=== PATIENT | female | born 1960 | race Caucasian/White ===

== ENCOUNTER 2021-01-22 00:23 | Emergency (ER) | payer BC ==
[~2021-01-22 00:23] MED LIST: BUPR300T53 PO; FLUV50TA2 PO; GABA-533 PO; PANT20TA PO; TRAZ150T79 PO
[2021-01-22 00:28] VITALS: BP 138/75
[2021-01-22] MEDS ORDERED: DIPHENHYDRAMINE HCL 25 MG CAPSULE PO ONE (01:00)
[2021-01-22] MEDS ORDERED: FAMOTIDINE 20MG TAB PO ONE (01:00)
[2021-01-22] MEDS ORDERED: IBUPROFEN 800 MG TAB PO ONE (01:00)
[2021-01-22] MEDS ORDERED: IBUP-1493 PO (01:24)
[2021-01-22] MEDS ORDERED: LORA-868 PO (01:24)
== END 2021-01-22 01:52 | disposition home or self-care (01) ==
LOC: EDH 00:23
DX: J02.9 Acute pharyngitis, unspecified (principal); H92.03 Otalgia, bilateral; F32.9 Major depressive disorder, single episode, unspecified; Z79.899 Other long term (current) drug therapy
CPT/HCPCS: 87880; 99283; Q0163

== ENCOUNTER 2022-02-10 19:08 | Emergency (ER) | payer BC ==
[~2022-02-10] VITALS: Ht 167.6 cm; Wt 90.3 kg
[~2022-02-10 19:08] MED LIST changes: -FLUV50TA2 PO; +FLUV50TA24 PO; +IBUP-1493 PO; +LORA-868 PO
[2022-02-10 19:39] LABS: BASOPHILS % (AUTO) 0.4 % (0.0-5.0); EOSINOPHILS % (AUTO) 0.1 % (0.0-8.0); LYMPHOCYTES % (AUTO) 8.7 % (21.0-51.0); MEAN CORPUSCULAR HEMOGLOBIN 27.7 pg (27.0-33.0); MEAN CORPUSCULAR HGB CONC 34.2 g/dL (32.0-36.0); MEAN CORPUSCULAR VOLUME 80.9 fL (79-99); MONOCYTES % (AUTO) 4.9 % (3.0-13.0); NEUTROPHILS % (AUTO) 85.5 % (40.0-77.0); PLATELET COUNT (AUTO) 300 K/uL (130-400); RED CELL DISTRIBUTION WIDTH 13.6 % (11.0-15.5); WHITE BLOOD COUNT (AUTO) 18.3 K/uL (4.8-10.8)
[2022-02-10] MEDS ORDERED: ONDANSETRON 4MG INJ ONE (19:43)
[2022-02-10 19:55] LABS: CREATININE 1.4 mg/dL (0.5-1.5); POTASSIUM 3.6 mmol/L (3.5-5.1)
[2022-02-10] MEDS ORDERED: 0.9%NACL 1000ML 1,000 ML IV ONE (20:00)
[2022-02-10] MEDS ORDERED: ONDANSETRON 4MG INJ IVP ONE (20:00)
[2022-02-10 20:04] LABS: ALBUMIN 4.1 g/dL (3.5-5.0); TOTAL PROTEIN, SERUM 7.6 g/dL (6.0-8.3)
[2022-02-10] MEDS ORDERED: ACETAMINOPHEN 325 MG TAB ONE (20:21)
[2022-02-10] MEDS ORDERED: ONDA4TAB10 PO (21:37)
[2022-02-10 21:44] VITALS: BP 119/61
== END 2022-02-10 21:54 | disposition home or self-care (01) ==
LOC: EDH 19:08
DX: K52.9 Noninfective gastroenteritis and colitis, unspecified (principal); E86.9 Volume depletion, unspecified; K21.9 Gastro-esophageal reflux disease without esophagitis; Z79.1 Long term (current) use of non-steroidal anti-inflammatories (NSAID); Z79.899 Other long term (current) drug therapy
CPT/HCPCS: 99284; 74176; 96374; 71045; 96361; 82270; 84484; 80053; 85025; 87040 ×2; 87046; 83605; 87324; 36415; 93005; J7030; J2405

== ENCOUNTER 2022-04-06 18:56 | Inpatient (IN) | payer BC ==
[~2022-04-06] VITALS: Ht 172.7 cm; Wt 86.4 kg
[2022-04-06] MEDS: 0.9%NACL 1000ML 1,000 ML IV SCH
[~2022-04-06 18:56] MED LIST changes: +ONDA4TAB10 PO
[2022-04-06] MEDS ORDERED: AZITHROMYCIN 250 MG TABLET PO ONE (19:30)
[2022-04-06] MEDS ORDERED: GUAIFENESIN-CODEINE 5 ML SYRUP PO ONE (19:30)
[2022-04-06] MEDS ORDERED: IPRATROPIUM/ALBUTEROL SULFATE 3 ML SOLUTION IH ONE (19:30)
[2022-04-06] MEDS ORDERED: ALBUTEROL 0.083% 2.5 MG/3 ML INH IH ONE (19:30)
[2022-04-06] MEDS ORDERED: AMOX/CLAV 875/125MG TAB PO ONE (19:30)
[2022-04-06] MEDS ORDERED: SOLU-MEDROL 125MG VIAL IVP ONE (19:30)
[2022-04-06 19:36] LABS: BASOPHILS % (AUTO) 0.3 % (0.0-5.0); EOSINOPHILS % (AUTO) 0.8 % (0.0-8.0); LYMPHOCYTES % (AUTO) 25.2 % (21.0-51.0); MEAN CORPUSCULAR HEMOGLOBIN 27.5 pg (27.0-33.0); MEAN CORPUSCULAR HGB CONC 33.7 g/dL (32.0-36.0); MEAN CORPUSCULAR VOLUME 81.6 fL (79-99); MONOCYTES % (AUTO) 4.8 % (3.0-13.0); NEUTROPHILS % (AUTO) 68.4 % (40.0-77.0); PLATELET COUNT (AUTO) 254 K/uL (130-400); RED BLOOD CELL COUNT(AUTO) 4.29 MIL/uL (4.00-5.50); RED CELL DISTRIBUTION WIDTH 14.2 % (11.0-15.5); WHITE BLOOD COUNT (AUTO) 13.3 K/uL (4.8-10.8)
[2022-04-06 19:53] LABS: POTASSIUM 3.9 mmol/L (3.5-5.1)
[2022-04-06 19:58] LABS: ALBUMIN 3.9 g/dL (3.5-5.0); TOTAL PROTEIN, SERUM 7.7 g/dL (6.0-8.3)
[2022-04-06] MEDS: BUDESONIDE 0.5 MG/2 ML INH IH SCH (20:06)
[2022-04-06] MEDS ORDERED: D-ME1POW16 PO (20:28)
[2022-04-06] MEDS ORDERED: AMOX1TAB16 PO (20:28)
[2022-04-06] MEDS ORDERED: PRED20TA3 PO (20:28)
[2022-04-06] MEDS ORDERED: ALBU90AE2 IH (20:28)
[2022-04-06 22:14] LABS: ABG BASE EXCESS -1.2 mmol/L (-2.0-3.0); ABG HCO3 21.8 mmol/L (21.0-28.0); ABG OXYGEN SATURATION 91.9 % (95.0-99.0); ABG PCO2 32 mmHg (32-45)
[2022-04-06] MEDS ORDERED: ONDANSETRON 4MG INJ IV PRN (22:30)
[2022-04-06] MEDS ORDERED: MORPHINE 4 MG SYG IV PRN (22:30)
[2022-04-06] MEDS ORDERED: ACETAMINOPHEN 325 MG TAB PO PRN (22:30)
[2022-04-06] MEDS ORDERED: MORPHINE 2 MG SYG IV PRN (22:30)
[2022-04-07] MEDS ORDERED: GUAIFENESIN-CODEINE 5 ML SYRUP PO PRN
[2022-04-07] MEDS: CEFTRIAXONE 1G VIAL IVP SCH
[2022-04-07] MEDS: IPRATROPIUM/ALBUTEROL SULFATE 3 ML SOLUTION IH SCH ×5 (00:58→23:44)
[2022-04-07] MEDS: TRAZODONE HCL 100 MG TABLET PO PRN ×2 (02:51→20:59)
[2022-04-07 04:20] VITALS: BP 118/68
[2022-04-07] MEDS ORDERED: FLUV50TA24 PO (05:08)
[2022-04-07] MEDS ORDERED: TRAZ-187 PO (05:08)
[2022-04-07] MEDS ORDERED: BUPR-93 PO (05:08)
[2022-04-07 05:57] LABS: BASOPHILS % (AUTO) 0.1 % (0.0-5.0); HEMATOCRIT 33.6 % (36-48); LYMPHOCYTES % (AUTO) 13.2 % (21.0-51.0); MEAN CORPUSCULAR HEMOGLOBIN 27.6 pg (27.0-33.0); MEAN CORPUSCULAR HGB CONC 33.6 g/dL (32.0-36.0); MONOCYTES % (AUTO) 0.6 % (3.0-13.0); NEUTROPHILS % (AUTO) 85.6 % (40.0-77.0); PLATELET COUNT (AUTO) 261 K/uL (130-400); RED CELL DISTRIBUTION WIDTH 14.4 % (11.0-15.5); WHITE BLOOD COUNT (AUTO) 9.6 K/uL (4.8-10.8)
[2022-04-07 06:08] LABS: MAGNESIUM 1.9 mg/dL (1.80-2.40); PHOSPHORUS 2.7 mg/dL (2.5-4.9); POTASSIUM 3.7 mmol/L (3.5-5.1)
[2022-04-07 08:00] VITALS: BP 130/71
[2022-04-07] MEDS: FAMOTIDINE 20MG VIAL IV SCH ×2 (08:18→20:59)
[2022-04-07] MEDS: ENOXAPARIN SODIUM 40 MG/0.4 ML SYRINGE SQ SCH (08:18)
[2022-04-07] MEDS ORDERED: 0.9% NACL 250ML 250 ML ONE (11:26)
[2022-04-07] MEDS: DOXYCYCLINE 100MG+NS 250ML IV SCH ×2 (11:29)
[2022-04-07 12:06] VITALS: BP 116/58
[2022-04-07 16:00] VITALS: BP 133/79
[2022-04-07 20:21] VITALS: BP 130/76
[2022-04-07] MEDS: 0.9%NACL 1000ML 1,000 ML IV SCH (21:00)
[2022-04-08] VITALS: BP 127/73
[2022-04-08] MEDS: DOXYCYCLINE 100MG+NS 250ML IV SCH ×2 (00:23→11:45)
[2022-04-08] MEDS: CEFTRIAXONE 1G VIAL IVP SCH (00:23)
[2022-04-08 04:16] VITALS: BP 135/70
[2022-04-08] MEDS: IPRATROPIUM/ALBUTEROL SULFATE 3 ML SOLUTION IH SCH ×2 (06:45→11:11)
[2022-04-08] MEDS: BUDESONIDE 0.5 MG/2 ML INH IH SCH (06:48)
[2022-04-08 07:15] VITALS: BP 118/57
[2022-04-08] MEDS: FAMOTIDINE 20MG VIAL IV SCH (09:00)
[2022-04-08] MEDS: ENOXAPARIN SODIUM 40 MG/0.4 ML SYRINGE SQ SCH (09:07)
[2022-04-08 11:10] VITALS: BP 131/73
[2022-04-08] MEDS ORDERED: 0.9% NACL 250ML 250 ML ONE (11:44)
[2022-04-08] MEDS ORDERED: DOXY100C5 PO (12:33)
[2022-04-08] MEDS ORDERED: KETOROLAC 30MG VIAL (30MG/ML) ONE (14:16)
[2022-04-08] MEDS ORDERED: GABAPENTIN 100 MG CAPSULE PO SCH (21:00)
[2022-04-08] MEDS ORDERED: GABAPENTIN 300 MG CAPSULE PO SCH (21:00)
== END 2022-04-08 16:20 | disposition home or self-care (01) | DRG 193 ==
LOC: EDH 18:56 → EDHIP 22:20 → 4AH 04-07 04:30
PROVIDERS: ADMIT Internal Medicine; ATTEND Internal Medicine
DX: J18.9 Pneumonia, unspecified organism (principal); J96.01 Acute respiratory failure with hypoxia; J40 Bronchitis, not specified as acute or chronic; Z79.899 Other long term (current) drug therapy; K21.9 Gastro-esophageal reflux disease without esophagitis
CPT/HCPCS: 36415; 36600; 71045; 80048; 80053; 82435; 82803; 82947; 83605; 83735; 84100; 84132; 84295; 84484; 85018; 85025; 87071; 87205; 87635; 87804; 94640; 94664; C9803; G0378; J0696; J1650; J1885; J2930; J3490; J7030; J7050

== ENCOUNTER 2023-05-30 19:37 | Emergency (ER) | payer BC ==
[~2023-05-30] VITALS: Ht 165.1 cm; Wt 93.4 kg
[~2023-05-30 19:37] MED LIST changes: +BUPR-93 PO; -BUPR300T53 PO; +DOXY100C5 PO; -GABA-533 PO; +GABA-534 PO; -IBUP-1493 PO; -LORA-868 PO; -ONDA4TAB10 PO; -PANT20TA PO; +TRAZ-187 PO; -TRAZ150T79 PO
[2023-05-30 22:36] VITALS: BP 132/73; PULSE 76; RESP 16; O2SAT 100
== END 2023-05-30 22:35 | disposition home or self-care (01) ==
LOC: EDH 19:37
DX: S63.253A Unspecified dislocation of left middle finger, initial encounter (principal); F32.A Depression, unspecified; K21.9 Gastro-esophageal reflux disease without esophagitis; E66.9 Obesity, unspecified; X58.XXXA Exposure to other specified factors, initial encounter; Y93.89 Activity, other specified; Y92.89 Other specified places as the place of occurrence of the external cause; Y99.8 Other external cause status
CPT/HCPCS: 73130

== ENCOUNTER 2024-09-29 17:30 | Emergency (ER) | payer BC ==
[~2024-09-29] VITALS: Ht 165.1 cm; Wt 89.8 kg
[~2024-09-29 17:30] MED LIST changes: +FLUV50TA PO; -FLUV50TA24 PO
[2024-09-29 18:02] LABS: ADD UA MICROSCOPIC YES; APPEARANCE,URINE CLEAR (CLEAR); BILIRUBIN,URINE NEGATIVE (NEGATIVE); COLOR,URINE YELLOW (YELLOW); GLUCOSE, URINE (UA) NEGATIVE (NEGATIVE); KETONES,URINE NEGATIVE (NEGATIVE); LEUKOCYTE ESTERASE ,URINE NEGATIVE Leu/uL (NEGATIVE); NITRATE,URINE NEGATIVE (NEGATIVE); OCCULT BLOOD,URINE SMALL (NEGATIVE); PH,URINE 5.5 (5.0-8.0); PROTEIN,URINE NEGATIVE (NEGATIVE); UROBILINOGEN,URINE 0.2 mg/dL (0.2-1.0)
[2024-09-29 18:07] LABS: BACTERIA,URINE RARE /HPF (None Seen); MUCUS,URINE RARE LPF (None Seen); SQUAMOUS EPITHELIAL CELL,UR FEW /HPF (0-2); WBC,URINE 0-1 /HPF (0-1)
--- NOTE | 2024-09-29 18:07 | ERN ---
ED Note History of Present Illness Stated Complaint: ABDOMINAL PAIN Chief Complaint: Abdominal Pain Time Seen by MD: 17:33 Time Seen by Midlevel: 17:33 Dictation: The patient is a 64-year-old female with a history of C diff diverticulosis, D and C in August who presents to the emergency department with complaints of left lower abdominal pain associated with nonbloody diarrhea and nausea onset 10 days ago. Patient reports he has been seeing her PCP who treated her with Cipro and Flagyl but patient reports that she is unable to take medications due to severe pain. Denies any fevers. Reports she visit Dr. Chavez prescription eyeglass maker and told her that if pain worsens to come to ER. Allergies: Coded Allergies: No Known Drug Allergies (Unverified Allergy, Unknown, 01/01/21) Home Meds Active Scripts Doxycycline Hyclate (Doxycycline Hyclate) 100 Mg Capsule, 100 MG PO BID for 5 Days, #10 CAP Prov:MAURICIO TRIPATHI Jr., MD 04/08/22 Reported Medications Trazodone HCl (Trazodone HCl) 100 Mg Tablet, 100 MG PO HS, TAB 04/07/22 Fluvoxamine Maleate (Fluvoxamine Maleate) 50 Mg Tablet, 50 MG PO AM, TAB 04/07/22 Bupropion HCl (Wellbutrin Xl) 150 Mg Tab.er.24h, 150 MG PO AM, TAB 04/07/22 Gabapentin (Gabapentin) 400 Mg Capsule, 400 MG PO PM, CAP 01/02/21 Past Medical History Past Medical History: Depression, Diverticulosis, GERD Additional Past Medical Hx: Obesity Surgical History: Other Surgical History Other: D&C Family History: Negative Social History: Negative, Other History: Not Applicable RN Note Reviewed/Agreed w/PFSH: Yes Review of System Dictation Constitutional: Negative for fever,chills, and weight loss Eyes: Negative for injury, pain,redness, and discharge ENT: Negative for injury,pain or swelling Cardiovascular: Negative for chest pain, palpitations, and edema Respiratory: Negative for shortness of breath, cough, and wheezing, Abdomen/GI: Negative for, vomiting, and constipation positive for abdominal pain, . nausea Back: Negative for injury and pain : Negative for injury, bleeding and discharge MS/Extremity: Negative for injury and deformity Skin: Negative for rash, and discoloration Neuro: Negative for headache, weakness, numbness, tingling, and seizure Psych: Negative for suicide ideation, homicidal ideation, and hallucinations Initial Vital Sign VS Vital Signs Date Time Temp Pulse Resp B/P (MAP) Pulse Ox O2 Delivery O2 Flow Rate FiO2 09/29/24 17:33 97.9 83 20 129/81 99 Room Air 09/29/24 18:33 0 21 Physical Exam Dictation Vital Signs reviewed General Appearance: Alert, oriented x 3, no acute distress, well developed, nourished. Head and Face: non-traumatic. Eyes: PERRL, pink conjunctivas, eyelid no trauma, anterior chamber with arcus senilis. Ears: Pinnas intact and no signs of trauma or erythema ear canals clear and no discharge TM no erythema Nose: No discharge, no bleeding. Oropharynx: Mouth normal, tongue pink. pharynx clear,no erythema, tonsils no exudates, no abscesses noted, mucous membrane moist Neck: Supple, non-tender, no thyromegaly, no masses, no JVD, no bruits Breast:Deferred Chest:No tenderness, no crepitus, no paradoxical movement, no retractions Lungs:Clear, well-ventilated, symmetric, no rales, no wheezing, no rhonchi, no stridor, good breath sounds bilaterally Heart: Regular rate, regular rhythm, no murmur, no gallops Vascular: no peripheral edema, Abdomen: Soft, positive bowel sounds, nondistended, no guarding, Left lower quadrant tenderness,, no rebound, no masses no hepatomegaly, no splenomegaly, no Travis's sign, no hernias. Rectal: Deferred Genital: Deferred Neurological: Normal speech, motor function intact, sensory function intact Musculoskeletal: Neck nontender, full range of motion, back nontender, full range of motion, Extremities: nontender, full range of motion Skin: Color pink, dry, no turgor, no rash, no lacerations, no abrasions, no contusions. Lymphatic: Deferred Results (Laboratory/Radiology) Laboratory/Radiology Laboratory Tests Test 09/29/24 17:50 09/29/24 18:26 Urine Color YELLOW (YELLOW) Urine Appearance CLEAR (CLEAR) Urine pH 5.5 (5.0-8.0) Urine Specific [place] 1.023 (1.001-1.031) Urine Protein NEGATIVE mg/dL (NEGATIVE) Urine Glucose (UA) NEGATIVE mg/dL (NEGATIVE) Urine Ketones NEGATIVE mg/dL (NEGATIVE) Urine Occult Blood SMALL (NEGATIVE) H Urine Nitrate NEGATIVE (NEGATIVE) Urine Bilirubin NEGATIVE mg/dL (NEGATIVE) Urine Urobilinogen 0.2 mg/dL (0.2-1.0) Urine Leukocyte Esterase NEGATIVE Marcus/uL Urine RBC 6-10 /HPF (0-1) H Urine WBC 0-1 /HPF (0-1) Urine Squamous Epithelial Cells FEW /HPF (0-2) Urine Bacteria RARE /HPF (None Seen) White Blood Count 10.3 K/uL (4.8-10.8) Red Blood Count 4.06 MIL/uL (4.00-5.50) Hemoglobin 11.6 g/dL (12.0-16.0) L Hematocrit 34.3 % (36-48) L Mean Corpuscular Volume 84.5 fL (79-99) Mean Corpuscular Hemoglobin 28.6 pg (27.0-33.0) Mean Corpuscular Hemoglobin Concent 33.8 g/dL (32.0-36.0) Red Cell Distribution Width 12.9 % (11.0-15.5) Platelet Count 290 K/uL (130-400) Mean Platelet Volume 8.7 fL (7.5-10.5) Immature Granulocyte % (Auto) 0.3 % (0-1) Neutrophils (%) (Auto) 63.0 % (40.0-77.0) Lymphocytes (%) (Auto) 26.6 % (21.0-51.0) Monocytes (%) (Auto) 7.8 % (3.0-13.0) Eosinophils (%) (Auto) 1.7 % (0.0-8.0) Basophils (%) (Auto) 0.6 % (0.0-5.0) Neutrophils # (Auto) 6.5 K/uL (1.8-7.7) Lymphocytes # (Auto) 2.7 K/uL (1.0-4.8) Monocytes # (Auto) 0.8 K/uL (0.1-1.0) Eosinophils # (Auto) 0.18 K/uL (0.00-0.70) Basophils # (Auto) 0.06 K/uL (0.00-0.20) Absolute Immature Granulocyte (auto 0.03 K/uL (0-1) Nucleated Red Blood Cells 0.0 % (0.0-0.19) Sodium Level 137 mmol/L (136-145) Potassium Level 3.6 mmol/L (3.5-5.1) Chloride Level 102 mmol/L (101-111) Carbon Dioxide Level 26 mmol/L (21-32) Blood Urea Nitrogen 10 mg/dL (7-18) Creatinine 1.1 mg/dL (0.5-1.0) H Glomerular Filtration Rate Calc 56 mL/min (>90) Random Glucose 80 mg/dL (70-105) Total Calcium 8.6 mg/dL (8.5-10.1) Total Bilirubin 0.7 mg/dL (0.2-1.0) Direct Bilirubin 0.1 mg/dL (0.0-0.3) Aspartate Amino Transf (AST/SGOT) 26 U/L (10-37) Alanine Aminotransferase (ALT/SGPT) 24 U/L (12-78) Alkaline Phosphatase 81 U/L (50-136) Total Creatine Kinase 103 U/L (21-232) Troponin I High Sensitivity 4 ng/L (4-50) Total Protein 7.1 g/dL (6.0-8.3) Albumin 3.8 g/dL (3.5-5.0) Lipase 32 U/L (16-77) REASON: Abdominal Pain ORDERING PHYSICIAN: SHEELA LEÓN PROCEDURE: ABD PEL W - CT ABDOMEN/PELVIS W/CONTRAST CT ABDOMEN/PELVIS W/CONTRAST HISTORY: Abdominal pain COMPARISON: 02/10/2022 TECHNIQUE: Multiple sequential axial images of the abdomen and pelvis were obtained from the dome of the diaphragm through symphysis pubis. Patient was given 75 cc of Omnipaque through intravenous route. Oral contrast was not given. FINDINGS: No pleural effusion is seen bilaterally. There is no evidence of parenchymal disease or pulmonary nodule of the visualized lower lungs. Degenerative changes of the thoracolumbar spine are present. The heart is not enlarged. There is a hypodense lesion noted in the posterior aspect of the right hepatic lobe measuring 10 mm. Neoplastic process cannot be excluded. There appears to be hepatic cysts with the largest measuring 18 mm. The spleen, adrenal glands and pancreas are unremarkable. There is no evidence of hydronephrosis bilaterally. No evidence of renal stone is seen. There is diverticulosis. Fecal material is seen in the colon. There are normal size retroperitoneal and mesenteric lymph nodes. No ascites is seen. Atherosclerotic changes are present. Pelvic sidewalls are symmetric bilaterally. The bladder is moderately distended with bladder wall thickening. IMPRESSION: 1. Hypodense lesion in the posterior aspect of right upper lobe measuring 10 mm with neoplastic process not excluded. Scoliosis. There is no evidence of adenopathy or ascites. Labs Reviewed?: Yes EKG: (+) rhythm (Sinus rhythm) EKG Comment: Date:09/29/2024 Time:1809 Ventricular rate:71 AR interval:164 QRS duration:88 QT/QTc:444 EKG interpretation: Sinus rhythm Reviewed by ED Attending no STEMI ED Course ED Course Orders Procedure Category Date Status Time Cbc With Differential LAB 09/29/24 Complete 17:51 Troponin I High LAB 09/29/24 Complete Sensitivity 17:51 Urinalysis Profile LAB 09/29/24 Complete 17:51 Ct Abdomen/Pelvis CT 09/29/24 Resulted W/Contrast 17:51 12 Lead Ekg Tracing- EKG 09/29/24 Complete Technical 17:51 0.9%Nacl 1000ml (Ns PHA 09/29/24 Complete 1000ml) 18:00 Morphine 4mg Syg PHA 09/29/24 Complete (Morphine 4mg Syg) 18:00 Ondansetron 4mg Inj PHA 09/29/24 Complete (Zofran 4mg Inj) 18:00 Creatine Kinase, Total LAB 09/29/24 Complete 17:51 Lipase LAB 09/29/24 Complete 17:51 Basic Metabolic Panel LAB 09/29/24 Complete 17:51 Iohexol (Omnipaque) PHA 09/29/24 Complete 18:55 Hepatic Function Panel LAB 09/29/24 Complete 20:29 Current Medications Medications (Trade) Dose Ordered Sig/Shaylee Route PRN Reason Start Time Stop Time Status Last Admin Dose Admin Iohexol (Omnipaque) 75 ml STK-MED ONCE IV 09/29/24 18:55 09/29/24 18:58 DC Morphine Sulfate (morPHINE 4MG SYG) 4 mg ONCE ONCE IVP 09/29/24 18:00 09/29/24 18:01 DC 09/29/24 18:23 Ondansetron HCl (zoFRAN 4MG INJ) 4 mg ONCE ONCE IVP 09/29/24 18:00 09/29/24 18:01 DC 09/29/24 18:23 Sodium Chloride 1,000 ml @ 0 mls/hr ONCE ONCE IV 09/29/24 18:00 09/29/24 18:01 DC 09/29/24 18:23 Vital Signs Date Time Temp Pulse Resp B/P (MAP) Pulse Ox O2 Delivery O2 Flow Rate FiO2 09/29/24 18:33 97.9 78 18 125/72 98 Room Air* 0 21 09/29/24 17:33 97.9 83 20 129/81 99 Room Air Medical Decision Making MDM The patient is a 64-year-old female with a history of C diff diverticulosis, D and C in August who presents to the emergency department with complaints of left lower abdominal pain associated with nonbloody diarrhea and nausea onset 10 days ago. Patient reports he has been seeing her PCP who treated her with Cipro and Flagyl but patient reports that she is unable to take medications due to severe pain. Denies any fevers. Reports she visit Dr. Chavez prescription eyeglass maker and told her that if pain worsens to come to ER. CBC showed no leukocytosis, mild normocytic anemia, chemistry showed creatinine of 1.5. Patient received a L of fluids in ER. No electrolyte imbalance, normal renal function. CT abdomen showed some reticulocytes but no diverticulitis. Lesion to liver about 10 mm. Patient with no more liver enzymes. Patient instructed to follow up with PCP and prescription eyeglass maker for further evaluation. Patient no acute distress. Nontoxic appearance. Will be discharged to follow up with PCP. Differential diagnosis: Diverticulitis, dehydration, gastroenteritis, UTI Need for hospitalization: Patient does not meet criteria for hospitalization. There are no social concerns with this patient. DX & DISP Disposition: Discharge Departure Impression: Primary Impression: Abdominal pain Additional Impression: Liver lesion, right lobe Condition: Stable Referrals: TRENT VAN MD (PCP) Time of Disposition: 20:45 I have reviewed the case, and I agree with, Diagnosis and Plan SHEELA LEÓN Sep 29, 2024 18:07
[2024-09-29] MEDS: 0.9%NACL 1000ML 1,000 ML IV ONE (18:23)
[2024-09-29] MEDS: ondanSETRON 4MG INJ IVP ONE (18:23)
[2024-09-29] MEDS: morPHINE 4 MG SYG IVP ONE (18:23)
[2024-09-29 18:32] LABS: BASOPHILS # (AUTO) 0.06 K/uL (0.00-0.20); BASOPHILS % (AUTO) 0.6 % (0.0-5.0); EOSINOPHILS # (AUTO) 0.18 K/uL (0.00-0.70); EOSINOPHILS % (AUTO) 1.7 % (0.0-8.0); HEMATOCRIT 34.3 % (36-48); IMMATURE GRANULOCYTE ABSOLUTE 0.03 K/uL (0-1); LYMPHOCYTES # (AUTO) 2.7 K/uL (1.0-4.8); LYMPHOCYTES % (AUTO) 26.6 % (21.0-51.0); MEAN CORPUSCULAR HEMOGLOBIN 28.6 pg (27.0-33.0); MEAN CORPUSCULAR HGB CONC 33.8 g/dL (32.0-36.0); MEAN CORPUSCULAR VOLUME 84.5 fL (79-99); MONOCYTES # (AUTO) 0.8 K/uL (0.1-1.0); MONOCYTES % (AUTO) 7.8 % (3.0-13.0); NEUTROPHILS # (AUTO) 6.5 K/uL (1.8-7.7); PLATELET COUNT (AUTO) 290 K/uL (130-400); RED BLOOD CELL COUNT(AUTO) 4.06 MIL/uL (4.00-5.50); RED CELL DISTRIBUTION WIDTH 12.9 % (11.0-15.5); WHITE BLOOD COUNT (AUTO) 10.3 K/uL (4.8-10.8)
[2024-09-29 18:43] LABS: CREATININE 1.1 mg/dL (0.5-1.0); POTASSIUM 3.6 mmol/L (3.5-5.1)
[2024-09-29] MEDS ORDERED: IOHEXOL-350 75 ML VIAL IV ONE (18:55)
--- NOTE | 2024-09-29 19:03 | NUR ---
to ct at this time
--- NOTE | 2024-09-29 19:32 | EKG ---
[facility] Test Date: 2024-09-29 Test Time: 18:10:29 Pat Name: LOURDES ARCHER Department: [facility] Room: Gender: F Carpenter'S Assistant: [id number] : 1960 Requested By: SHEELA LEÓN Order Number: [id number] Reading MD: Angeli Jernigan Measurements Intervals [place] Rate: 71 P: 29 NM: 164 QRS: 27 QRSD: 88 T: 37 QT: 410 QTc: 444 Interpretive Statements Sinus rhythm Compared to ECG 02/10/2022 19:18:42 Sinus tachycardia no longer present T-wave abnormality no longer present Possible ischemia no longer present Electronically Signed On 10-01-2024 09:33:17 CDT by Angeli Jernigan Please click the below link to view image of tracing.
--- NOTE | 2024-09-29 19:37 | HMCIMG ---
CT ABDOMEN/PELVIS W/CONTRAST HISTORY: Abdominal pain COMPARISON: 02/10/2022 TECHNIQUE: Multiple sequential axial images of the abdomen and pelvis were obtained from the dome of the diaphragm through symphysis pubis. Patient was given 75 cc of Omnipaque through intravenous route. Oral contrast was not given. FINDINGS: No pleural effusion is seen bilaterally. There is no evidence of parenchymal disease or pulmonary nodule of the visualized lower lungs. Degenerative changes of the thoracolumbar spine are present. The heart is not enlarged. There is a hypodense lesion noted in the posterior aspect of the right hepatic lobe measuring 10 mm. Neoplastic process cannot be excluded. There appears to be hepatic cysts with the largest measuring 18 mm. The spleen, adrenal glands and pancreas are unremarkable. There is no evidence of hydronephrosis bilaterally. No evidence of renal stone is seen. There is diverticulosis. Fecal material is seen in the colon. There are normal size retroperitoneal and mesenteric lymph nodes. No ascites is seen. Atherosclerotic changes are present. Pelvic sidewalls are symmetric bilaterally. The bladder is moderately distended with bladder wall thickening. IMPRESSION: 1. Hypodense lesion in the posterior aspect of right upper lobe measuring 10 mm with neoplastic process not excluded. Scoliosis. There is no evidence of adenopathy or ascites. CT was performed with one or more following dose reduction techniques: automated exposure control, adjustment of the mA and kv according to patient's size, or use of a iterative reconstruction technique.
[2024-09-29 20:44] LABS: ALBUMIN 3.8 g/dL (3.5-5.0); BILIRUBIN,DIRECT 0.1 mg/dL (0.0-0.3); BILIRUBIN,TOTAL 0.7 mg/dL (0.2-1.0); TOTAL PROTEIN, SERUM 7.1 g/dL (6.0-8.3)
[2024-09-29 21:06] VITALS: BP 118/67; PULSE 72; RESP 16; TEMP 97.9; O2SAT 98
== END 2024-09-29 21:12 | disposition home or self-care (01) ==
LOC: EDH 17:30
DX: R10.30 Lower abdominal pain, unspecified (principal); K76.9 Liver disease, unspecified; E66.9 Obesity, unspecified; F32.A Depression, unspecified; Z68.32 Body mass index [BMI] 32.0-32.9, adult
CPT/HCPCS: 99284; 74177; 96374; 96361; 96375; 82550; 80076; 84484; 80048; 83690; 85025; 81001; 36415; 93005; J2405; J2270; Q9967